=== PATIENT | female | born 1995 | race Two or more races ===

== ENCOUNTER 2020-12-01 10:12 | Emergency (ER) | payer SELFPAY ==
[~2020-12-01] VITALS: Ht 170.2 cm; Wt 70.0 kg
[2020-12-01 10:38] VITALS: BP 124/74
[2020-12-01] MEDS ORDERED: DIPH,PERTUSS(ACELL),TET VAC/PF 0.5 ML SYRINGE. VAX IM ONE (11:15)
[2020-12-01] MEDS ORDERED: NEOMY/BACITR/POLYMYXIN OINT PACKET. TP ONE (11:15)
--- NOTE | 2020-12-01 11:21 | ED.ADGEN ---
Past Medical History Past Medical History: No Pertinent History Past Surgical History: Tubal ligation Smoking Status: Never Smoker Alcohol Use: Occasionally Drug Use: None General Adult EDM: Chief Complaint: LOWER EXT PAIN HPI: HPI: Patient is a 25 year old female who presents emergency department with complaints of bruising, abrasion, and pain to her right distal femur and right knee after stepping on a vent and falling while working in her house today. Patient denies any loss of consciousness, head pain, neck pain, numbness, tingling, or weakness. She denies any inability to bear weight on the affected extremity. Patient states she has not been immunized for COVID-19 but she did have the infection already several months ago. She is unsure when her last tetanus shot was. Patient states her last menstrual cycle was 3 weeks ago and she has had a history of surgical sterilization done in [facility]. She currently rates her pain a 7 out of 10 on the pain scale, she denies any alleviating factors, pain is worse with movement and palpation. Review of Systems: Review of Systems: Complete ROS is negative unless otherwise noted in HPI. Current Medications: Current Medications Medications (Trade) Dose Ordered Sig/Otf Start Time Stop Time Status Last Admin Dose Admin Diphtheria/ Tetanus/Acell Pertussis (ADACEL TDap SYRINGE) 0.5 ml ONCE ONCE 12/01/20 11:15 12/01/20 11:22 DC 12/01/20 11:19 0.5 ML Neomycin/ Polymyxin/ Bacitracin (Triple Antibiotic Ointment) 1 pkt 1X ONCE 12/01/20 11:15 12/01/20 11:22 DC 12/01/20 11:17 1 PKT Allergies: Allergies: Allergies Coded Allergies Type Severity Reaction Last Updated Verified No Known Drug Allergies 12/01/20 No Physical Exam: PE: See Above Constitutional: Well developed, well nourished, no acute distress, non-toxic appearance. [] HENT: Normocephalic, atraumatic, bilateral external ears normal, nose normal. [] Eyes: PERRLA, EOMI, conjunctiva normal, no discharge. [] Neck: Normal range of motion, no stridor. [] Cardiovascular:Heart rate regular rhythm Lungs & Thorax: Respirations even and unlabored, no retractions, no respiratory distress Back: No bony tenderness, right lumbar paraspinal tenderness to palpation, Skin: Warm, dry; erythema and abrasion to lateral distal right knee Extremities: Right knee: Lateral tenderness to palpation, no obvious deformity, no crepitus, no cyanosis, ROM intact, no edema. [] Neurologic: Alert and oriented X 3, normal motor, normal sensory, no focal deficits noted. [] Psychologic: Affect normal, judgement normal, mood normal. [] Current Patient Data: Vital Signs: Vital Signs Date Time Temp Pulse Resp B/P (MAP) Pulse Ox O2 Delivery O2 Flow Rate FiO2 12/01/20 10:38 98.8 86 18 124/74 100 Room Air 98.8 EKG: EKG: [] Heart Score: C/O Chest Pain: No Radiology/Procedures: Radiology/Procedures: PROCEDURE: KNEE RIGHT 3V XR KNEE 3 VIEWS_RT 12/01/2020 11:07 AM INDICATION: Right knee and right distal femur pain COMPARISON: None available. TECHNIQUE: 3 views of the right knee are provided. FINDINGS/ IMPRESSION: There is no acute fracture or dislocation. There is remodeling of the proximal fibular head which may reflect sequela of remote trauma. Joint spaces are maintained. Bone mineralization is within normal limits. Regional soft tissues are within normal limits. There is no soft tissue gas or osseous erosion. No radiopaque foreign body. There is small knee joint effusion. Patella baja. Electronically signed by: Jessica Reyes MD (12/01/2020 11:23 AM) [id number][] Course & Med Decision Making: Course & Med Decision Making Pertinent Labs and Imaging studies reviewed. (See chart for details) [] Christiano Disclaimer: Christiano Disclaimer: This electronic medical record was generated, in whole or in part, using a voice recognition dictation system. Departure Departure Impression: Primary Impression: Contusion of thigh, right Additional Impressions: Abrasion, right thigh, initial encounter Need for Tdap vaccination Disposition: HOME / SELF CARE / HOMELESS Condition: STABLE Referrals: NO PCP (PCP) Patient Instructions: Abrasion, [id number], Contusion, [id number], VIS, Tetanus, Diphtheria (Td); Tetanus, Diphtheria, Pertussis (Tdap) - [facility] Additional Instructions: Tylenol or ibuprofen as needed for pain. Apply ice to sore area as needed for comfort. Follow the instructions provided. Follow up with a primary care doctor for revaluation in 1-2 days, return to the ER if symptoms worsen or fever develops. [facility] [address] [place] [address] [facility] [address] [place] [address] [facility] [address] [facility] [place] [address] [facility] [address] [place] [address] [facility] [address] [place] [address] [facility] [address] [place] [address] [facility] [place] [address] [place] [address] [facility] [address] [place] [address] [facility] [address] [place] [address] [facility] [address] [place] [address] Problem Qualifiers Primary Impression: Contusion of thigh, right Encounter type: initial encounter Qualified Codes: S70.11XA - Contusion of right thigh, initial encounter LUIS ANTONIO CEBALLOS [employer] Dec 01, 2020 11:21
--- NOTE | 2020-12-01 11:25 | RAD ---
XR KNEE 3 VIEWS_RT 12/01/2020 11:07 AM INDICATION: Right knee and right distal femur pain COMPARISON: None available. TECHNIQUE: 3 views of the right knee are provided. FINDINGS/ IMPRESSION: There is no acute fracture or dislocation. There is remodeling of the proximal fibular head which may reflect sequela of remote trauma. Joint spaces are maintained. Bone mineralization is within normal limits. Regional soft tissues are within normal limits. There is no soft tissue gas or osseous erosio n. No radiopaque foreign body. There is small knee joint effusion. Patella baja. Electronically signed by: Jessica Reyes MD (12/01/2020 11:23 AM) [id number]
== END 2020-12-01 12:27 | disposition home or self-care (01) ==
LOC: ER 10:12
DX: S70.11XA Contusion of right thigh, initial encounter (principal); M25.561 Pain in right knee; W18.39XA Other fall on same level, initial encounter; Y93.89 Activity, other specified; Y92.89 Other specified places as the place of occurrence of the external cause; Y99.8 Other external cause status
CPT/HCPCS: 73562; 90471; 90715; 99283-25